=== PATIENT | female | born 1980 | race Caucasian/White ===

== ENCOUNTER 2017-11-27 21:37 | Emergency (ER) | payer MEDICAID ==
[~2017-11-27] VITALS: Ht 170.2 cm; Wt 90.5 kg
[2017-11-27] MEDS ORDERED: SUMA25TA9 PO (22:01)
[2017-11-27 22:32] VITALS: BP 150/109
[2017-11-27] MEDS ORDERED: KETOROLAC TROMETHAMINE 30 MG/ML VIAL IM ONE (22:45)
== END 2017-11-27 22:59 | disposition home or self-care (01) ==
LOC: EMS 21:38
DX: G44.209 Tension-type headache, unspecified, not intractable (principal); G43.909 Migraine, unspecified, not intractable, without status migrainosus; Z79.899 Other long term (current) drug therapy
CPT/HCPCS: 99283